=== PATIENT | male | born 1995 | race Caucasian/White ===

== ENCOUNTER 2016-08-24 14:13 | Emergency (ER) | payer MEDICAID, OTHER ==
[~2016-08-24] VITALS: Wt 68.2 kg
[2016-08-24 15:36] LABS: ADD SCAN DIFF NO
[2016-08-24 15:41] LABS: BASOPHIL # 0.1 10^3/ul (0.0-0.1); BASOPHILS % 0.4 % (0.0-2.0); EOSINOPHILS % 0.1 % (0.0-7.0); HEMATOCRIT 46.2 % (42.0-52.0); HEMOGLOBIN 16.3 g/dl (14.0-18.0); LYMPHOCYTES # 1.7 10^3/ul (0.8-2.9); LYMPHOCYTES % 13.1 % (15.0-51.0); MEAN CORPUSCULAR HEMOGLOBIN 30.9 pg (29.0-33.0); MEAN CORPUSCULAR HGB CONC 35.3 g/dl (32.0-37.0); MEAN CORPUSCULAR VOLUME 87.5 fl (82.0-101.0); MEAN PLATELET VOLUME 9.6 fl (7.4-10.4); MONOCYTE # 0.8 10^3/ul (0.3-0.9); NEUTROPHIL # 10.2 10^3/ul (1.6-7.5); PLATELET COUNT 282 10^3/UL (140-415); RED BLOOD COUNT 5.28 10^6/ul (4.70-6.10); RED CELL DISTRIBUTION WIDTH 12.3 % (11.5-14.5); WHITE BLOOD COUNT 12.7 10^3/ul (4.8-10.8)
[2016-08-24 16:01] LABS: ALBUMIN 4.8 g/dl (3.3-4.9); CHLORIDE 104 mmol/L (97-110); POTASSIUM 3.8 mmol/L (3.5-5.1); SODIUM 145 mmol/L (135-144)
[2016-08-24 16:03] LABS: ANION GAP 19 (8-16); BILIRUBIN,INDIRECT 2.2 mg/dl (0-1.1); BILIRUBIN,TOTAL 2.2 mg/dl (0.2-1.3); CARBON DIOXIDE 26 mmol/L (21-31); CREATININE 1.04 mg/dl (0.61-1.24)
[2016-08-24 16:04] LABS: ALANINE AMINOTRANSFERASE 36 IU/L (13-69); ALBUMIN/GLOBULIN RATIO 1.41; ALKALINE PHOSPHATASE 67 IU/L (42-121); ASPARTATE AMINO TRANSFERASE 26 IU/L (15-46); BLOOD UREA NITROGEN 14 mg/dl (7-20); CALCIUM 10.1 mg/dl (8.4-10.2); GLUCOSE 92 mg/dl (70-220); TOTAL PROTEIN 8.2 g/dl (6.1-8.1)
[2016-08-24 16:06] LABS: SALICYLATE < 1.0 mg/dl (5.0-30.0)
[2016-08-24 16:11] LABS: BARBITURATES NEGATIVE (NEGATIVE); BENZODIAZEPINES NEGATIVE (NEGATIVE); CANNABINOIDS POSITIVE (NEGATIVE); COCAINE NEGATIVE (NEGATIVE); OPIATES NEGATIVE (NEGATIVE)
[2016-08-24 16:54] LABS: ETHANOL < 10.0 mg/dl
--- NOTE | 2016-08-24 17:56 | PSY ---
Date/Time of Note Date/Time of Note DATE: 08/24/16 TIME: 17:50 Psychiatric Subjective Eval Consent Pt consented to telemedicine: Yes Subjective Evaluation Patient location: emergency Chief Complaint: SI by jumping off bridge and OD by 3/4 bottle of mucinex ( nyquil sized) History of present illness 21 yo male BIB ambulance after he called his sister and told her he is suicdal and drunk about a half a bottle of mucinex. Pt denies to me now any SI, he says, he slept and feels much beter. He was upset about break up with his GF, was not able to sleep for 3 days and impulsively took a few sips from Mucinex bottle and then called his sister. He als told her he wants to jump off the bridge, but denies any intent to harm himself now. Denies depressed mood, denies si or hi. Denies ah or vh. Pt says he was upset for 3 days since the break up. Pt denies feeling hopeless or helpless, denies overt sadness, denies anhedonia, he is remorseful about his actions and is future oriented - wants ot get his GED and return to work. Past psychiatric history in due to SA by OD Hospitalization: Suicidal Attempt(s) Family History denies Medical history NAD Allergies: Coded Allergies: No Known Drug Allergies (Verified Allergy, Unknown, 08/24/16) Substance Abuse Substance abuse history: Yes (mj) Prior substance abuse treatmen: No Social History Marital status: single Level of education: GED DPA/Conservatorship: No Occupation/Long Term: [employer] Objective Eval Physical Examination: Sleep: Insomnia Appetite: Adequate Energy: Adequate Interest: Adequate Mental Status Examination: Appearance: Groomed Eye Contact: Good Psychomotor Activity: Normal Behavior: Cooperative Speech: Clear AFFECT: Appropriate Mood: Appropriate/Full Though Process: Linear Thought Content: Normal Suicidal: No Homicidal: No Orientation: x4 Cognition: Alert Insight: Impared Judgement: Impared Attention Span: Intact Laboratory Results Laboratory Tests Test 08/24/16 15:20 Acetaminophen Level 15.0ug/ml Alanine Aminotransferase (ALT/SGPT) 36IU/L Albumin 4.8g/dl Albumin/Globulin Ratio 1.41 Alkaline Phosphatase 67IU/L Anion Gap 19 Aspartate Amino Transf (AST/SGOT) 26IU/L Basophils # 0.110^3/ul Basophils % 0.4% Blood Urea Nitrogen 14mg/dl Calcium Level 10.1mg/dl Carbon Dioxide Level 26mmol/L Chloride Level 104mmol/L Creatinine 1.04mg/dl Direct Bilirubin 0.00mg/dl Eosinophils # 0.010^3/ul Eosinophils % 0.1% Ethyl Alcohol Level < 10.0mg/dl Globulin 3.40g/dl Glucose Level 92mg/dl Hematocrit 46.2% Hemoglobin 16.3g/dl Indirect Bilirubin 2.2mg/dl Lymphocytes # 1.710^3/ul Lymphocytes % 13.1% Mean Corpuscular Hemoglobin 30.9pg Mean Corpuscular Hemoglobin Concent 35.3g/dl Mean Corpuscular Volume 87.5fl Mean Platelet Volume 9.6fl Monocytes # 0.810^3/ul Monocytes % 6.0% Neutrophils # 10.210^3/ul Neutrophils % 80.0% Nucleated Red Blood Cells # 0.010^3/ul Nucleated Red Blood Cells % 0.0/100WBC Platelet Count 20179^3/UL Potassium Level 3.8mmol/L Red Blood Count 5.2810^6/ul Red Cell Distribution Width 12.3% Salicylates Level < 1.0mg/dl Sodium Level 145mmol/L Total Bilirubin 2.2mg/dl Total Protein 8.2g/dl Urine Amphetamines Screen NEGATIVE Urine Barbiturates NEGATIVE Urine Benzodiazepines Screen NEGATIVE Urine Cannabinoids POSITIVE Urine Cocaine Screen NEGATIVE Urine Opiates Screen NEGATIVE White Blood Count 12.710^3/ul Assessment and Plan Assessment/Diagnosis [place] I: ADJUSTMENT DO WITH DEPRESSED MOOD [place] II: DEFERED [place] III: NAD [place] IV: MODERATE [place] V: GAF 55 Recommendation/Plan Medication Management DEFER TO OUTPT Psychotherapy DEFER TO OUTPT Pt. Caregiver/Family Education N/A Follow-up/Disposition NO DTS, DTO,GD; REMORSEFUL ABOUT OD. PT WAS ADVISED TO RETURN BACK TO ED IF START HAVING SI AGAIN OR PERSISTENT INSOMNIA. PLEASE REFER TO OUTPT MENTAL HEALTH. MAY ALARCON MD Aug 24, 2016 17:56
[2016-08-24 18:10] VITALS: PULSE 74; RESP 20; TEMP 98
--- NOTE | 2016-08-24 18:54 | ERD ---
ER Documentation Chief Complaint Date/Time DATE: 08/24/16 TIME: 18:52 Chief Complaint SI by jumping off bridge and OD by 3/4 bottle of mucinex (nyquil sized) HPI Bottle of Mucinex. Patient states he is having a tumultuous relationship with his girlfriend. He stated that he cheated on her and then she cheated on him to make it "even". This caused a risk between them and some fighting and they broke up 2 days ago. The patient states she is very upset about the situation and he went home strengthening a Mucinex and wanted to jump off a bridge at that time. Currently he says he is remorseful about what he did he is not suicidal at all. He has a history of prior suicide attempt in the past. He has no physical symptoms whatsoever. ROS All systems reviewed and are negative except as per history of present illness. Medications Home Meds No Active Prescriptions or Reported Meds Allergies Allergies: Coded Allergies: No Known Drug Allergies (Verified Allergy, Unknown, 08/24/16) PMhx/Soc Medical and Surgical Hx: pt denies Surgical Hx History of Surgery: No Anesthesia Reaction: No Hx Neurological Disorder: No Hx Respiratory Disorders: No Hx Cardiac Disorders: No Hx Psychiatric Problems: Yes (depression, previous suicide attempts) Hx Miscellaneous Medical Probl: No Hx Alcohol Use: No Hx Substance Use: No Hx Tobacco Use: No Smoking Status: Unknown if ever smoked FmHx Family History: No coronary disease Physical Exam Vitals Vital Signs Date Time Temp Pulse Resp B/P Pulse Ox O2 Delivery O2 Flow Rate FiO2 08/24/16 18:10 98.0 74 20 106/67 100 Room Air 08/24/16 15:23 71 20 115/74 96 Room Air 08/24/16 14:25 98.9 102 20 119/90 97 Physical Exam Const: Well-developed, well-nourished Head: Atraumatic, normocephalic Eyes: Normal Conjunctiva, PERRLA, EOMI, normal sclera, no nystagmus ENT: Normal External Ears, Nose and Mouth, moist mucus membranes. Neck: Full range of motion. No meningismus, no lymphadenopathy. Resp: Clear to auscultation bilaterally, no wheezing, rhonchi, rales Cardio: Regular rate and rhythm, no murmurs, S1 S2 present Abd: Soft, non tender x 4, non distended. Normal bowel sounds, no guarding or rebound, no pulsitile abdominal masses or bruits Skin: No petechiae or rashes, no ecchymosis , no maculopapular rash Back: No midline or flank tenderness Ext: No cyanosis, or edema, FROM x 4, normal inspection, neurovascularly intact x 4 Neur: Awake and alert, STR 5/5 x 4, sensation intact x 4, no focal findings, cerebellum intact Psych: Normal Mood and Affect, tearful when he talks about the situation , not suicidal not homicidal cooperative and pleasant remorseful Result Diagram: 08/24/16 1520 08/24/16 1520 Results 24 hrs Laboratory Tests Test 08/24/16 15:20 Acetaminophen Level 15.0ug/ml Alanine Aminotransferase (ALT/SGPT) 36IU/L Albumin 4.8g/dl Albumin/Globulin Ratio 1.41 Alkaline Phosphatase 67IU/L Anion Gap 19 Aspartate Amino Transf (AST/SGOT) 26IU/L Basophils # 0.110^3/ul Basophils % 0.4% Blood Urea Nitrogen 14mg/dl Calcium Level 10.1mg/dl Carbon Dioxide Level 26mmol/L Chloride Level 104mmol/L Creatinine 1.04mg/dl Direct Bilirubin 0.00mg/dl Eosinophils # 0.010^3/ul Eosinophils % 0.1% Ethyl Alcohol Level < 10.0mg/dl Globulin 3.40g/dl Glucose Level 92mg/dl Hematocrit 46.2% Hemoglobin 16.3g/dl Indirect Bilirubin 2.2mg/dl Lymphocytes # 1.710^3/ul Lymphocytes % 13.1% Mean Corpuscular Hemoglobin 30.9pg Mean Corpuscular Hemoglobin Concent 35.3g/dl Mean Corpuscular Volume 87.5fl Mean Platelet Volume 9.6fl Monocytes # 0.810^3/ul Monocytes % 6.0% Neutrophils # 10.210^3/ul Neutrophils % 80.0% Nucleated Red Blood Cells # 0.010^3/ul Nucleated Red Blood Cells % 0.0/100WBC Platelet Count 36961^3/UL Potassium Level 3.8mmol/L Red Blood Count 5.2810^6/ul Red Cell Distribution Width 12.3% Salicylates Level < 1.0mg/dl Sodium Level 145mmol/L Total Bilirubin 2.2mg/dl Total Protein 8.2g/dl Urine Amphetamines Screen NEGATIVE Urine Barbiturates NEGATIVE Urine Benzodiazepines Screen NEGATIVE Urine Cannabinoids POSITIVE Urine Cocaine Screen NEGATIVE Urine Opiates Screen NEGATIVE White Blood Count 12.710^3/ul Procedures/MDM Dr. Cifuentes spoke with the patient and release him as outpatient follow-up and says he is not suicidal and not a threat to self or others. He was put on hold but I feel as Dr. Cifuentes does the patient is stable for discharge she is not actively suicidal and was just acting out in anger. Denies suicidal ideation to me on multiple occasions here. Departure Diagnosis: Primary Impression: Overdose Encounter type: initial encounter Injury intent: undetermined intent Qualified Code: T50.904A - Overdose, undetermined intent, initial encounter Additional Impression: Suicide threat or attempt Condition: Stable Patient Instructions: Warning Signs of Suicide and What You Can Do MARJAN TROTTER DO Aug 24, 2016 18:54
[2016-08-24 19:52] VITALS: BP 120/86
== END 2016-08-24 19:54 | disposition home or self-care (01) ==
LOC: E/R 14:13
DX: T48.4X2A Poisoning by expectorants, intentional self-harm, initial encounter (principal); T14.91 Suicide attempt
CPT/HCPCS: 36415; 80053; 80306; 80307; 85025; 99284